=== PATIENT | female | born 1970 | race Caucasian/White ===

== ENCOUNTER 2019-01-17 22:01 | Emergency (ER) | payer MEDICARE, OTHER ==
[~2019-01-17] VITALS: Ht 165.1 cm; Wt 91.8 kg
[2019-01-17 22:04] VITALS: Ht 165.1 cm; Wt 91.8 kg
[2019-01-18] MEDS ORDERED: KETOROLAC 15 MG INJ IV ONE (00:38)
[2019-01-18 02:50] VITALS: BP 134/84; PULSE 86; RESP 17
== END 2019-01-18 02:50 | disposition home or self-care (01) ==
LOC: E/R 22:01
DX: R10.13 Epigastric pain (principal)
CPT/HCPCS: 36415; 71045; 74176; 80053; 81001; 81025; 83690; 84484; 85025; 85378; 93005; 96374; 99285; J1885; 81003